=== PATIENT | female | born 1930 | race Caucasian/White ===

== ENCOUNTER 2017-01-16 22:22 | Emergency (ER) | payer MEDICARE, OTHER ==
[~2017-01-16] VITALS: Ht 162.6 cm; Wt 53.1 kg
[~2017-01-16 22:22] MED LIST: AMLO1CAP7 PO; CITA10TA4 PO; METF500T4 PO; METO-269 PO; POTA10TA5 PO; VALS1TAB8 PO
[2017-01-16 22:26] VITALS: BP 198/77
[2017-01-16 23:35] LABS: CALCIUM 8.9 mg/dL (8.5-10.1); CREATININE 1.5 mg/dL (0.6-1.0); GFR 32.9; POTASSIUM 4.3 mmol/L (3.5-5.1)
[2017-01-16 23:41] LABS: ALBUMIN 3.6 g/dL (3.4-5.0); ALBUMIN/GLOBULIN RATIO 1.1 (1.0-1.7); TOTAL BILIRUBIN 0.4 mg/dL (0.2-1.0); TOTAL PROTEIN 6.8 g/dL (6.4-8.2)
[2017-01-16 23:44] LABS: BASO # 0.1 x10^3/uL (0.0-0.2); BASO % 1 % (0-3); EOS % 2 % (0-3); HEMATOCRIT 34.1 % (36.0-47.0); HEMOGLOBIN 11.6 g/dL (12.0-15.5); LYMPH # 1.2 x10^3/uL (1.0-4.8); LYMPH % 15 % (24-48); MEAN CORPUSCULAR HEMOGLOBIN 32 pg (25-35); MEAN CORPUSCULAR HGB CONC 34 g/dL (31-37); MEAN CORPUSCULAR VOLUME 93 fL (79-100); MONO % 9 % (0-9); NEUT % 74 % (31-73); PLATELET COUNT 183 x10^3/uL (140-400); RED BLOOD COUNT 3.68 x10^6/uL (3.50-5.40); RED CELL DISTRIBUTION WIDTH 12.5 % (11.5-14.5); WHITE BLOOD COUNT 8.5 x10^3/uL (4.0-11.0)
--- NOTE | 2017-01-17 00:29 | PHYS DOC ---
Past Medical History Past Medical History: Dementia, Diabetes-Type II, Hypertension Additional Past Medical Histor: ALZHEIMERS Past Surgical History: Alcohol Use: None Drug Use: None Adult General Chief Complaint Chief Complaint: SYNCOPE HPI HPI Patient is a 86 year old female brought to the ED by EMS from home after syncopal episode. Family members here with her contribute to the history. The patient really doesn't know what happened. Patient's daughter lives with her. She said that the patient had been in the kitchen helping to dry dishes, she went over and sat down at the table, then she sounds like she looked at the floor and was a bit confused for a moment and then she fell out of the chair onto the floor. She was unresponsive for possibly 2 minutes. They called 911. She had one episode of vomiting a small amount of clear liquid. She came around pretty quickly, does not sound like she had any kind of postictal state. She was not incontinent. On arrival in the ED, she is alert, talkative, and without complaint. There is no report of any chest pain or other complaint. The patient reportedly had one syncopal episode in the past when they were at the store. She does not frequently have problems with this. On arrival, the patient denies any pain. She denies headache, neck pain, chest or abdominal pain. Review of Systems Review of Systems Constitutional: Denies fever or chills [] HENT: Denies nasal congestion or sore throat [] Respiratory: Denies cough or shortness of breath [] Cardiovascular: Denies chest pain GI: As in history of present illness : Denies dysuria or hematuria [] Musculoskeletal: Denies back pain or joint pain [] Integument: Denies rash or skin lesions [] Neurologic: Denies headache, focal weakness or sensory changes [] Allergies Allergies Allergies Coded Allergies Type Severity Reaction Last Updated Verified No Known Drug Allergies 02/27/14 No Physical Exam Physical Exam Constitutional: Well developed, well nourished, no acute distress, non-toxic appearance. Alert, mentating normally. HENT: Normocephalic, atraumatic, bilateral external ears normal, nose normal. [ ] Eyes: conjunctiva normal, no discharge. [] Neck: Normal range of motion, no tenderness, no stridor. [] Cardiovascular:Heart rate regular rhythm, no murmur [] Lungs & Thorax: Bilateral breath sounds clear to auscultation [] Abdomen: Bowel sounds normal, soft, nondistended, no tenderness, no masses, no pulsatile masses. [] Skin: Warm, dry, no erythema, no rash. [] Extremities: No tenderness, no cyanosis, no clubbing, ROM intact, no edema. [] Neurologic: Alert and oriented X 3, normal motor function, normal sensory function, no focal deficits noted. [] Current Patient Data Vital Signs Vital Signs Date Time Temp Pulse Resp B/P (MAP) Pulse Ox O2 Delivery O2 Flow Rate FiO2 01/16/17 22:26 98.0 63 18 198/77 (117) 99 Room Air 98.0 Lab Values Laboratory Tests Test 01/16/17 23:15 01/16/17 23:35 Sodium Level 137 mmol/L (136-145) Potassium Level 4.3 mmol/L (3.5-5.1) Chloride Level 102 mmol/L (98-107) Carbon Dioxide Level 30 mmol/L (21-32) Anion Gap 5 (6-14) L Blood Urea Nitrogen 32 mg/dL (7-20) H Creatinine 1.5 mg/dL (0.6-1.0) H Estimated GFR (Cockcroft-Gault) 32.9 BUN/Creatinine Ratio 21 (6-20) H Glucose Level 159 mg/dL (70-99) H Calcium Level 8.9 mg/dL (8.5-10.1) Total Bilirubin 0.4 mg/dL (0.2-1.0) Aspartate Amino Transferase (AST) 16 U/L (15-37) Alanine Aminotransferase (ALT) 17 U/L (14-59) Alkaline Phosphatase 116 U/L (46-116) Total Protein 6.8 g/dL (6.4-8.2) Albumin 3.6 g/dL (3.4-5.0) Albumin/Globulin Ratio 1.1 (1.0-1.7) White Blood Count 8.5 x10^3/uL (4.0-11.0) Red Blood Count 3.68 x10^6/uL (3.50-5.40) Hemoglobin 11.6 g/dL (12.0-15.5) L Hematocrit 34.1 % (36.0-47.0) L Mean Corpuscular Volume 93 fL (79-100) Mean Corpuscular Hemoglobin 32 pg (25-35) Mean Corpuscular Hemoglobin Concent 34 g/dL (31-37) Red Cell Distribution Width 12.5 % (11.5-14.5) Platelet Count 183 x10^3/uL (140-400) Neutrophils (%) (Auto) 74 % (31-73) H Lymphocytes (%) (Auto) 15 % (24-48) L Monocytes (%) (Auto) 9 % (0-9) Eosinophils (%) (Auto) 2 % (0-3) Basophils (%) (Auto) 1 % (0-3) Neutrophils # (Auto) 6.3 x10^3uL (1.8-7.7) Lymphocytes # (Auto) 1.2 x10^3/uL (1.0-4.8) Monocytes # (Auto) 0.7 x10^3/uL (0.0-1.1) Eosinophils # (Auto) 0.2 x10^3/uL (0.0-0.7) Basophils # (Auto) 0.1 x10^3/uL (0.0-0.2) Laboratory Tests 01/16/17 23:35 Laboratory Tests 01/16/17 23:15 EKG EKG Twelve-lead EKG read by me. Sinus rhythm. Heart rate 65. There are no acute ST or T wave changes indicative of ischemia or infarction. No STEMI. No rhythm disturbance. 0768 Radiology/Procedures Radiology/Procedures [] Course & Med Decision Making Course & Med Decision Making Pertinent Labs and Imaging studies reviewed. (See chart for details) 86 sure old female who has some dementia, lives with a family member, presents after syncopal episode that occurred while she was sitting down. We will check an EKG and some labs and observe the patient. EKG unremarkable, labs unremarkable. The patient remained alert, mentating normally, chatting with family members, in the ED. I don't know that hospitalization would yield any further results and finding out what caused her syncopal episode. She had a trial of ambulation in the emergency department prior to discharge. She will be staying with a family member who will watch her. Family feels comfortable with discharge. [] Dragon Disclaimer Dragon Disclaimer This electronic medical record was generated, in whole or in part, using a voice recognition dictation system. Departure Departure Impression: Primary Impression: Syncope Disposition: 01 HOME, SELF-CARE Condition: STABLE Referrals: TOMASZ CARRASCO MD (PCP) Patient Instructions: Syncope, [id number] Additional Instructions: Be very careful with position changes and have someone near you when you are standing up and walking for the next day or 2. Drink plenty of fluids. DEBBIE MICHAELS MD Jan 17, 2017 00:29
--- NOTE | 2017-01-17 06:23 | EKG ---
[facility] [address] [place] [address] Test Date: 2017-01-16 Test Time: 22:35:54 Pat Name: ANALILIA ALLEN Department: Room: Gender: F Strap Buckler: : 1930 Requested By: DEBBIE MICHAELS Order Number: [id number] Reading MD: Measurements Intervals [place] Rate: 65 P: 53 [place]: 180 QRS: -17 QRSD: 84 T: 64 QT: 390 QTc: 406 Interpretive Statements SINUS RHYTHM LEFTWARD AXIS NON SPECIFIC T ABNORMALITY RI6.01 Unconfirmed report No previous ECG available for comparison
== END 2017-01-17 00:45 | disposition home or self-care (01) ==
LOC: ER 22:22
DX: R55 Syncope and collapse (principal); E11.9 Type 2 diabetes mellitus without complications; I10 Essential (primary) hypertension; F02.80 Dementia in other diseases classified elsewhere, unspecified severity, without behavioral disturbance, psychotic disturbance, mood disturbance, and anxiety; G30.9 Alzheimer's disease, unspecified
CPT/HCPCS: 36415; 80053; 85027; 93005; 99285-25

== ENCOUNTER 2017-10-17 16:19 | Emergency (ER) | payer MEDICARE, OTHER | END 2017-10-17 17:55 | disposition home or self-care (01) | LOC: ER 16:19 | DX: S70.01XA Contusion of right hip, initial encounter (principal); S79.912A Unspecified injury of left hip, initial encounter; E11.9 Type 2 diabetes mellitus without complications; I10 Essential (primary) hypertension; F02.80 Dementia in other diseases classified elsewhere, unspecified severity, without behavioral disturbance, psychotic disturbance, mood disturbance, and anxiety; W19.XXXA Unspecified fall, initial encounter; Y93.89 Activity, other specified; Y92.89 Other specified places as the place of occurrence of the external cause; Y99.8 Other external cause status | CPT/HCPCS: 70450; 72170; 93005; 99284-25; 99285-25 ==

== ENCOUNTER 2017-10-24 19:25 | Inpatient (IN) | payer MEDICARE, OTHER ==
[2017-10-24 20:17] LABS: BILIRUBIN,URINE NEGATIVE (NEG); CLARITY,URINE CLEAR; COLOR,URINE YELLOW; GLUCOSE,URINE >=1000 mg/dL (NEG); NITRITE,URINE POSITIVE (NEG); PROTEIN,URINE NEGATIVE (NEG-TRACE)
[2017-10-24 20:25] LABS: ADD MAN DIFF? NO
[2017-10-24 20:28] LABS: BASO % 0 % (0-3); EOS % 0 % (0-3); HEMATOCRIT 36.8 % (36.0-47.0); HEMOGLOBIN 12.6 g/dL (12.0-15.5); LYMPH % 12 % (24-48); MEAN CORPUSCULAR HEMOGLOBIN 32 pg (25-35); MEAN CORPUSCULAR HGB CONC 34 g/dL (31-37); MEAN CORPUSCULAR VOLUME 93 fL (79-100); MONO # 0.6 x10^3/uL (0.0-1.1); MONO % 8 % (0-9); NEUT # 6.5 x10^3uL (1.8-7.7); NEUT % 80 % (31-73); PLATELET COUNT 209 x10^3/uL (140-400); RED BLOOD COUNT 3.97 x10^6/uL (3.50-5.40); RED CELL DISTRIBUTION WIDTH 12.4 % (11.5-14.5); WHITE BLOOD COUNT 8.2 x10^3/uL (4.0-11.0)
[2017-10-24 20:39] LABS: ANION GAP 9 (6-14); BLOOD UREA NITROGEN 34 mg/dL (7-20); CALCIUM 9.3 mg/dL (8.5-10.1); CARBON DIOXIDE 26 mmol/L (21-32); CHLORIDE 100 mmol/L (98-107); CREATININE 1.4 mg/dL (0.6-1.0); GFR 35.6; GLUCOSE 437 mg/dL (70-99); SODIUM 135 mmol/L (136-145)
[2017-10-24 20:43] LABS: BACTERIA,URINE MANY /HPF (0-FEW); MAGNESIUM 1.4 mg/dL (1.8-2.4); PHOSPHORUS 3.8 mg/dL (2.6-4.7); SQUAMOUS EPITHELIAL CELL,UR MOD /LPF
[2017-10-24 20:46] LABS: TROPONINI 0.017 ng/mL (0.000-0.055)
[2017-10-24 20:52] LABS: THYROID STIM HORMONE (TSH) 2.895 uIU/mL (0.358-3.74)
[2017-10-24] MEDS: ONDANSETRON PF 4 MG/2 ML VIAL. IV (22:56)
[2017-10-24] MEDS: fentaNYL PF VIAL 100 MCG/2 ML VIAL IV (22:56)
[2017-10-24] MEDS: IV NORMAL SALINE 1000ML BAG 1,000 ML IV (22:56)
[2017-10-25 07:57] LABS: POC GLUCOSE 172 mg/dL (70-99)
[2017-10-25] MEDS: IV NORMAL SALINE 1000ML BAG 1,000 ML IV ×2 (08:45→12:55)
[2017-10-25] MEDS: MAGNESIUM SULFATE 2GM 50 ML IV (10:16)
[2017-10-25] MEDS: CITALOPRAM 10 MG TABLET. PO (10:17)
[2017-10-25] MEDS: hydroCHLOROthiazide 12.5 MG CAPSULE PO (10:17)
[2017-10-25] MEDS: MEMANTINE 10 MG TABLET. PO (10:17)
[2017-10-25] MEDS: LOSARTAN POTASSIUM 50 MG TABLET. PO (10:18)
[2017-10-25] MEDS ORDERED: ceFAZolin 2GM PREMIX 2 GM/50 ML BAG IV (12:00)
[2017-10-25 12:02] LABS: POC GLUCOSE 222 mg/dL (70-99)
[2017-10-25] MEDS ORDERED: WARFARIN 7.5 MG TABLET. PO (16:00)
[2017-10-25] MEDS: IV RINGERS,LACTATED 1000ML 1,000 ML IV (16:10)
[2017-10-25] MEDS ORDERED: ONDANSETRON PF 4 MG/2 ML VIAL. IV ×2 (16:15→21:30)
[2017-10-25] MEDS ORDERED: MORPHINE SULFATE 4 MG/ML DISP.SYRIN. IV ×3 (16:15→21:45)
[2017-10-25] MEDS ORDERED: fentaNYL PF VIAL 100 MCG/2 ML VIAL IV ×3 (16:15→21:30)
[2017-10-25] MEDS ORDERED: PROCHLORPERAZINE 10 MG/2 ML VIAL. IV (16:15)
[2017-10-25] MEDS ORDERED: LIDOCAINE 1% PF 2 ML VIAL. ID (16:15)
[2017-10-25 16:41] LABS: POC GLUCOSE 153 mg/dL (70-99)
[2017-10-25] MEDS ORDERED: PHENYLEPHRINE in 0.9% NACL PF 1 MG/10 ML SYRINGE. IV (18:05)
[2017-10-25] MEDS ORDERED: LIDOCAINE 2% PF Vial for OR 5 ML VIAL. (18:05)
[2017-10-25] MEDS ORDERED: PROPOFOL 20 ML IV (18:05)
[2017-10-25] MEDS ORDERED: fentaNYL PF VIAL 100 MCG/2 ML VIAL (18:06)
[2017-10-25] MEDS: MORPHINE SULFATE 5 MG, KETOROLAC 30 MG, ROPIVacaine 0.5% PF 60 ML, EPINEPHrine 0.5 MG i... INT ART (18:48)
[2017-10-25] MEDS ORDERED: ONDANSETRON PF 4 MG/2 ML VIAL. (18:53)
[2017-10-25] MEDS ORDERED: DEXAMETHASONE SOD PHOS 20 MG/5 ML VIAL. (18:53)
[2017-10-25] MEDS ORDERED: ePHEDrine PF IN SALINE 50 MG/5 ML DISP.SYRIN IV (19:10)
[2017-10-25 20:22] LABS: POC GLUCOSE 192 mg/dL (70-99)
[2017-10-25] MEDS: INSULIN ASPART 100 UNIT/ML 10ML VIAL. SQ ×2 (20:40→21:00)
[2017-10-25] MEDS ORDERED: INSULIN LISPRO 100 UNIT/ML 3ML VIAL. SQ (20:45)
[2017-10-25 21:09] LABS: POC GLUCOSE 226 mg/dL (70-99)
[2017-10-25] MEDS ORDERED: oxyCODONE IR 5 MG TABLET PO (21:30)
[2017-10-25] MEDS ORDERED: HYDROcodone/APAP 7.5/325MG 1 TAB TABLET PO (21:30)
[2017-10-25] MEDS ORDERED: POLYETHYLENE GLYCOL 3350 17 GM PACKET. PO (21:30)
[2017-10-25] MEDS ORDERED: DEXTROSE 50% 25 GM / 50ML DISP.SYRIN. IV (21:30)
[2017-10-25] MEDS ORDERED: ceFAZolin SODIUM 1 GM in IV DEXTROSE 5% 50 ML IV (21:45)
[2017-10-25 22:16] LABS: MRSA BY PCR Negative (Negative)
[2017-10-25 22:42] LABS: INR 1.1 (0.8-1.1); PROTHROMBIN TIME PATIENT 13.5 SEC (11.7-14.0)
[2017-10-26] MEDS: ceFAZolin SODIUM IV Push 1 GM VIAL. IVP ×3 (00:12→11:34)
[2017-10-26] MEDS ORDERED: ANTI-COAG MONITOR BY PHARMACY. MC (00:15)
[2017-10-26] MEDS: WARFARIN 5 MG TABLET. PO (00:26)
[2017-10-26 05:31] LABS: HEMATOCRIT 28.9 % (36.0-47.0); HEMOGLOBIN 9.9 g/dL (12.0-15.5); MEAN CORPUSCULAR HGB CONC 34 g/dL (31-37)
[2017-10-26 05:35] LABS: INR 1.1 (0.8-1.1)
[2017-10-26 05:43] LABS: ANION GAP 7 (6-14); BLOOD UREA NITROGEN 34 mg/dL (7-20); CALCIUM 8.4 mg/dL (8.5-10.1); CARBON DIOXIDE 26 mmol/L (21-32); CHLORIDE 107 mmol/L (98-107); CREATININE 1.3 mg/dL (0.6-1.0); GFR 38.7; GLUCOSE 233 mg/dL (70-99); SODIUM 140 mmol/L (136-145)
[2017-10-26] MEDS ORDERED: MAGNESIUM HYDROXIDE 2,400 MG/30 ML ORAL.SUSP. PO (06:00)
[2017-10-26 08:19] LABS: POC GLUCOSE 194 mg/dL (70-99)
[2017-10-26] MEDS: CITALOPRAM 10 MG TABLET. PO (08:33)
[2017-10-26] MEDS: SENNOSIDES/DOCUSATE 8.6/50MG TABLET. PO (08:33)
[2017-10-26] MEDS: MEMANTINE 10 MG TABLET. PO (08:33)
[2017-10-26] MEDS: hydroCHLOROthiazide 12.5 MG CAPSULE PO (08:33)
[2017-10-26] MEDS: LOSARTAN POTASSIUM 50 MG TABLET. PO (08:34)
[2017-10-26 12:21] LABS: POC GLUCOSE 225 mg/dL (70-99)
[2017-10-26] MEDS ORDERED: BISACODYL 10 MG SUPP.RECT. PR (16:00)
[2017-10-26 17:40] LABS: POC GLUCOSE 194 mg/dL (70-99)
[2017-10-26] MEDS: WARFARIN 3 MG TABLET. PO (17:48)
[2017-10-26 21:18] LABS: POC GLUCOSE 248 mg/dL (70-99)
[2017-10-27 09:27] LABS: PROTHROMBIN TIME PATIENT 21.6 SEC (11.7-14.0)
[2017-10-27] MEDS: HYDROcodone/APAP 7.5/325MG 1 TAB TABLET PO (09:28)
[2017-10-27 09:38] LABS: POC GLUCOSE 178 mg/dL (70-99)
[2017-10-27] MEDS: LOSARTAN POTASSIUM 50 MG TABLET. PO (09:49)
[2017-10-27] MEDS: SENNOSIDES/DOCUSATE 8.6/50MG TABLET. PO (09:50)
[2017-10-27] MEDS: MEMANTINE 10 MG TABLET. PO (09:50)
[2017-10-27] MEDS: hydroCHLOROthiazide 12.5 MG CAPSULE PO (09:50)
[2017-10-27] MEDS: CITALOPRAM 10 MG TABLET. PO (09:50)
[2017-10-27 11:00] LABS: POC GLUCOSE 247 mg/dL (70-99)
[2017-10-27 16:29] LABS: POC GLUCOSE 242 mg/dL (70-99)
[2017-10-27] MEDS: WARFARIN 1 MG TABLET. PO (17:37)
[2017-10-27 22:00] LABS: POC GLUCOSE 346 mg/dL (70-99)
[2017-10-27 22:00] LABS: POC GLUCOSE 346 mg/dL (70-99)
[2017-10-27] MEDS: INSULIN GLARGINE 300 UNITS/3 ML INSULN.PEN. SQ (22:25)
[2017-10-28 01:34] LABS: POC GLUCOSE 184 mg/dL (70-99)
[2017-10-28 05:03] LABS: INR 1.9 (0.8-1.1); PROTHROMBIN TIME PATIENT 21.5 SEC (11.7-14.0)
[2017-10-28 07:51] LABS: POC GLUCOSE 161 mg/dL (70-99)
[2017-10-28] MEDS: CITALOPRAM 10 MG TABLET. PO (09:03)
[2017-10-28] MEDS: LOSARTAN POTASSIUM 50 MG TABLET. PO (09:03)
[2017-10-28] MEDS: MEMANTINE 10 MG TABLET. PO (09:03)
[2017-10-28] MEDS: hydroCHLOROthiazide 12.5 MG CAPSULE PO (09:03)
[2017-10-28] MEDS: SENNOSIDES/DOCUSATE 8.6/50MG TABLET. PO (09:03)
[2017-10-28 11:30] LABS: POC GLUCOSE 216 mg/dL (70-99)
[2017-10-28] MEDS: WARFARIN 3 MG TABLET. PO (15:59)
[2017-10-28 17:15] LABS: POC GLUCOSE 293 mg/dL (70-99)
[2017-10-28] MEDS: metFORMIN 500 MG TABLET PO (17:38)
[2017-10-28] MEDS: INSULIN GLARGINE 300 UNITS/3 ML INSULN.PEN. SQ ×2 (17:43→21:34)
[2017-10-28 20:53] LABS: POC GLUCOSE 257 mg/dL (70-99)
[2017-10-29 05:38] LABS: INR 2.1 (0.8-1.1); PROTHROMBIN TIME PATIENT 22.7 SEC (11.7-14.0)
[2017-10-29 08:02] LABS: POC GLUCOSE 142 mg/dL (70-99)
[2017-10-29] MEDS: SENNOSIDES/DOCUSATE 8.6/50MG TABLET. PO (08:29)
[2017-10-29] MEDS: hydroCHLOROthiazide 12.5 MG CAPSULE PO (08:29)
[2017-10-29] MEDS: CITALOPRAM 10 MG TABLET. PO (08:29)
[2017-10-29] MEDS: LOSARTAN POTASSIUM 50 MG TABLET. PO (08:29)
[2017-10-29] MEDS: metFORMIN 500 MG TABLET PO (08:29)
[2017-10-29] MEDS: MEMANTINE 10 MG TABLET. PO (08:30)
[2017-10-29 11:36] LABS: POC GLUCOSE 218 mg/dL (70-99)
[2017-10-29 15:11] LABS: HEMOGLOBIN A1C 7.3 % (4.8-5.6)
[2017-10-29] MEDS: WARFARIN 2 MG TABLET. PO (15:37)
== END 2017-10-29 15:47 | DRG 470 ==
LOC: ER 19:25 → 4 NORTH 21:00
PROC: 0SRR0J9 Replacement of Right Hip Joint, Femoral Surface with Synthetic Substitute, Cemented, Open Approach (ICD-10-PCS; principal; 2017-10-25 17:00)
DX: S72.011A Unspecified intracapsular fracture of right femur, initial encounter for closed fracture (principal); E11.22 Type 2 diabetes mellitus with diabetic chronic kidney disease; G30.9 Alzheimer's disease, unspecified; F02.80 Dementia in other diseases classified elsewhere, unspecified severity, without behavioral disturbance, psychotic disturbance, mood disturbance, and anxiety; N18.3 Chronic kidney disease, stage 3 (moderate); E03.9 Hypothyroidism, unspecified; E83.42 Hypomagnesemia; I12.9 Hypertensive chronic kidney disease with stage 1 through stage 4 chronic kidney disease, or unspecified chronic kidney disease; M16.11 Unilateral primary osteoarthritis, right hip; W18.39XA Other fall on same level, initial encounter; Y93.89 Activity, other specified; Y92.89 Other specified places as the place of occurrence of the external cause; Y99.8 Other external cause status; Z87.891 Personal history of nicotine dependence
CPT/HCPCS: 36415; 71045; 73502; 73700; 80048; 81001; 82962; 83036; 83735; 84100; 84443; 84484; 85014; 85018; 85025; 85610; 87641; 93005; 96361; 96374; 96375; 97110-GO; 97110-GP; 97116-GP; 97162-GP; 97166-GO; 97530-GO; 97530-GP; 97535-GO; 99285; 99285-25; A7015; C1713; J0171; J0690; J1100; J1815; J1885; J2270; J2370; J2405; J2704; J2795; J3010; J3475; J7030; J7120

== ENCOUNTER 2019-01-30 09:52 | Inpatient (IN) | payer MEDICARE, OTHER ==
[~2019-01-30] VITALS: Ht 160 cm; Wt 51.3 kg
[~2019-01-30 09:52] MED LIST changes: +AMLO1CAP42 PO; -AMLO1CAP7 PO; +HYDR-2761 PO; +HYDR-2765 PO; +IBUP-1227 PO; +METF500T16 PO; -METF500T4 PO; +POTA10TA12 PO; -POTA10TA5 PO; +WARF3TAB50 PO
--- NOTE | 2019-01-30 10:14 | PHYS DOC ---
Past Medical History Past Medical History: Dementia, Diabetes-Type II, Hypertension, Other Additional Past Medical Histor: ALZHEIMERS Past Surgical History: Additional Past Surgical Histo: LEFT HIP Alcohol Use: None Drug Use: None Adult General Chief Complaint Chief Complaint: SYNCOPE HPI HPI Patient is a pleasant 89-year-old female with a past history of dementia. According to EMS report, the patient was being bathed by her home health aides, when she had a syncopal episode in the bathtub, for approximately 30 seconds. According to EMS, family who was present on scene reported that after the patient awakened, she is back at her current mental state. The patient currently is awake, pleasant, and denies any complaints. She does have a prior history of atrial fibrillation, but according to prior notes which have been reviewed, she does not take any anticoagulation, as her risk of falls and harm from the medication was deemed to outweigh the benefit. The patient currently is awake, alert to person, disoriented to place and time, but able to follow commands, and engage and pleasant conversation. There is some confabulation present. There are no alleviating or exacerbating factors to her symptoms. Review of Systems Review of Systems Constitutional: Denies fever or chills [] Eyes: Denies change in visual acuity, redness, or eye pain [] HENT: Denies nasal congestion or sore throat [] Respiratory: Denies cough or shortness of breath [] Cardiovascular: The patient denies any shortness of breath, chest pain, pa lpitations, or orthopnea[] GI: Denies abdominal pain, nausea, vomiting, bloody stools or diarrhea [] : Denies dysuria or hematuria [] Musculoskeletal: Denies back pain or joint pain [] Integument: Denies rash or skin lesions [] Neurologic: Denies headache, focal weakness or sensory changes [] Endocrine: Denies polyuria or polydipsia [] All other systems were reviewed and found to be within normal limits, except as documented in this note. Current Medications Current Medications Current Medications Medications (Trade) Dose Ordered Sig/Ji Start Time Stop Time Status Last Admin Dose Admin Ceftriaxone Sodium (Rocephin) 1 gm 1X ONCE 01/30/19 13:30 01/30/19 13:31 DC 01/30/19 13:01 1 GM Magnesium Sulfate 50 ml @ 25 mls/hr 1X ONCE 01/30/19 13:30 01/30/19 15:29 01/30/19 13:01 25 MLS/HR Sodium Chloride 1,000 ml @ 100 mls/hr Q10H 01/30/19 10:30 01/30/19 20:29 01/30/19 11:07 100 MLS/HR Allergies Allergies Allergies Coded Allergies Type Severity Reaction Last Updated Verified No Known Drug Allergies 10/25/17 No Physical Exam Physical Exam PHYSICAL EXAM: CONSTITUTIONAL: Well developed, well nourished HEAD: normocephalic, atraumatic EENT: PERRL, EOMI. Conjunctivae normal color, sclerae non-icteric; moist mucous membranes. NECK: Supple, non-tender; no meningismus. LUNGS: Lungs CTA, breathing even and unlabored. Normal air movement. HEART: Regular rate and rhythm, no murmur CHEST: No deformity; non-tender ABDOMEN: The abdomen is soft, and non-tender, no masses or bruits. EXTREM: Normal ROM; no deformity, no calf tenderness. Normal pulses palpable in all extremities. There is no pedal edema. SKIN: No rash; no diaphoresis NEURO: Alert; normal speech, impaired cognition consistent with dementia,; CN's grossly intact; strength grossly intact without focal deficit. BACK: No CVA TTP. Current Patient Data Vital Signs Vital Signs Date Time Temp Pulse Resp B/P (MAP) Pulse Ox O2 Delivery O2 Flow Rate FiO2 01/30/19 12:56 58 16 165/74 (104) Room Air 01/30/19 09:54 97.3 98 97.3 Lab Values Laboratory Tests Test 01/30/19 10:57 01/30/19 12:17 White Blood Count 7.9 x10^3/uL (4.0-11.0) Red Blood Count 3.94 x10^6/uL (3.50-5.40) Hemoglobin 12.0 g/dL (12.0-15.5) Hematocrit 35.6 % (36.0-47.0) L Mean Corpuscular Volume 90 fL (79-100) Mean Corpuscular Hemoglobin 31 pg (25-35) Mean Corpuscular Hemoglobin Concent 34 g/dL (31-37) Red Cell Distribution Width 13.7 % (11.5-14.5) Platelet Count 262 x10^3/uL (140-400) Neutrophils (%) (Auto) 73 % (31-73) Lymphocytes (%) (Auto) 17 % (24-48) L Monocytes (%) (Auto) 7 % (0-9) Eosinophils (%) (Auto) 2 % (0-3) Basophils (%) (Auto) 1 % (0-3) Neutrophils # (Auto) 5.8 x10^3/uL (1.8-7.7) Lymphocytes # (Auto) 1.3 x10^3/uL (1.0-4.8) Monocytes # (Auto) 0.6 x10^3/uL (0.0-1.1) Eosinophils # (Auto) 0.2 x10^3/uL (0.0-0.7) Basophils # (Auto) 0.1 x10^3/uL (0.0-0.2) Sodium Level 140 mmol/L (136-145) Potassium Level 4.2 mmol/L (3.5-5.1) Chloride Level 103 mmol/L (98-107) Carbon Dioxide Level 30 mmol/L (21-32) Anion Gap 7 (6-14) Blood Urea Nitrogen 21 mg/dL (7-20) H Creatinine 1.0 mg/dL (0.6-1.0) Estimated GFR (Cockcroft-Gault) 52.2 BUN/Creatinine Ratio 21 (6-20) H Glucose Level 166 mg/dL (70-99) H Calcium Level 9.5 mg/dL (8.5-10.1) Magnesium Level 1.2 mg/dL (1.8-2.4) L Total Bilirubin 0.7 mg/dL (0.2-1.0) Aspartate Amino Transferase (AST) 18 U/L (15-37) Alanine Aminotransferase (ALT) 11 U/L (14-59) L Alkaline Phosphatase 129 U/L (46-116) H Troponin I Quantitative < 0.017 ng/mL (0.000-0.055) UI-Tgk-X-Type Natriuretic Peptide 377 pg/mL (0-449) Total Protein 6.4 g/dL (6.4-8.2) Albumin 3.5 g/dL (3.4-5.0) Albumin/Globulin Ratio 1.2 (1.0-1.7) Urine Collection Type Unknown Urine Color Yellow Urine Clarity Clear Urine pH 5.0 Urine Specific [place] 1.020 Urine Protein Negative mg/dL (NEG-TRACE) Urine Glucose (UA) Negative mg/dL (NEG) Urine Ketones (Stick) Negative mg/dL (NEG) Urine Blood Small (NEG) Urine Nitrite Positive (NEG) Urine Bilirubin Negative (NEG) Urine Urobilinogen Dipstick 0.2 mg/dL (0.2 mg/dL) Urine Leukocyte Esterase Large (NEG) Urine RBC 0 /HPF (0-2) Urine WBC >40 /HPF (0-4) Urine Squamous Epithelial Cells Mod /LPF Urine Bacteria Many /HPF (0-FEW) Laboratory Tests 01/30/19 10:57 Laboratory Tests 01/30/19 10:57 EKG EKG [Normal sinus rhythm a rate of 62 beats for minute, left axis deviation, normal intervals, there are no acute ischemic ST/T changes.] Radiology/Procedures Radiology/Procedures [PROCEDURE: PORTABLE CHEST 1V Indication:Syncope. TECHNIQUE:Portable AP chest X-ray COMPARISON: 12/22/2018 FINDINGS: Heart is normal in size. Lungs are clear. No pneumothorax or effusion. Visualized bony thorax is within normal limits. Chronic left proximal humeral fracture. IMPRESSION: No acute pulmonary process. ] Course & Med Decision Making Course & Med Decision Making Pertinent Labs and Imaging studies reviewed. (See chart for details) []The patient's condition remained stable. I had an extensive discussion with the patient and her daughter, the patient's daughter would like her hospitalized for cardiac monitoring, even after discussion with the patient's PCP in depth, and likely will not make a change in her management. However the patient's daughter was comfortable with this disposition. The patient be admitted to observation. The patient's PCP explicitly did not want any telemetry at this time. Dragon Disclaimer Dragon Disclaimer This electronic medical record was generated, in whole or in part, using a voice recognition dictation system. Departure Departure Impression: Primary Impression: Syncope Disposition: 09 ADMITTED INPATIENT Admitting Physician: Schuyler Schmidt Condition: STABLE Referrals: SCHUYLER SCHMIDT MD (PCP) SCHUYLER CARL MD Jan 30, 2019 10:14
[2019-01-30] MEDS ORDERED: IV NORMAL SALINE 1000ML BAG 1,000 ML IV SCH (10:30)
[2019-01-30 11:06] LABS: BASO # 0.1 x10^3/uL (0.0-0.2); BASO % 1 % (0-3); EOS # 0.2 x10^3/uL (0.0-0.7); EOS % 2 % (0-3); HEMATOCRIT 35.6 % (36.0-47.0); LYMPH # 1.3 x10^3/uL (1.0-4.8); LYMPH % 17 % (24-48); MEAN CORPUSCULAR HEMOGLOBIN 31 pg (25-35); MEAN CORPUSCULAR HGB CONC 34 g/dL (31-37); MEAN CORPUSCULAR VOLUME 90 fL (79-100); MONO # 0.6 x10^3/uL (0.0-1.1); MONO % 7 % (0-9); NEUT # 5.8 x10^3/uL (1.8-7.7); NEUT % 73 % (31-73); PLATELET COUNT 262 x10^3/uL (140-400); RED BLOOD COUNT 3.94 x10^6/uL (3.50-5.40); RED CELL DISTRIBUTION WIDTH 13.7 % (11.5-14.5); WHITE BLOOD COUNT 7.9 x10^3/uL (4.0-11.0)
--- NOTE | 2019-01-30 11:06 | RAD ---
Indication:Syncope. TECHNIQUE:Portable AP chest X-ray COMPARISON: 12/22/2018 FINDINGS: Heart is normal in size. Lungs are clear. No pneumothorax or effusion. Visualized bony thorax is within normal limits. Chronic left proximal humeral fracture. IMPRESSION: No acute pulmonary process. Electronically signed by: Devaughn Gloria DO (01/30/2019 11:03 AM) [facility]
[2019-01-30 11:23] LABS: CALCIUM 9.5 mg/dL (8.5-10.1); GFR 52.2; POTASSIUM 4.2 mmol/L (3.5-5.1)
[2019-01-30 11:28] LABS: ALBUMIN 3.5 g/dL (3.4-5.0); ALBUMIN/GLOBULIN RATIO 1.2 (1.0-1.7); MAGNESIUM 1.2 mg/dL (1.8-2.4); TOTAL BILIRUBIN 0.7 mg/dL (0.2-1.0); TOTAL PROTEIN 6.4 g/dL (6.4-8.2)
[2019-01-30 12:32] LABS: BILIRUBIN,URINE NEGATIVE (NEG); CLARITY,URINE CLEAR; COLOR,URINE YELLOW; NITRITE,URINE POSITIVE (NEG); PROTEIN,URINE NEGATIVE (NEG-TRACE); UROBILINOGEN,URINE 0.2 mg/dL (0.2 mg/dL)
[2019-01-30 12:44] LABS: SQUAMOUS EPITHELIAL CELL,UR MOD /LPF
[2019-01-30 12:45] LABS: RBC,URINE 0 /HPF (0-2)
[2019-01-30 12:46] LABS: BACTERIA,URINE MANY /HPF (0-FEW); WBC,URINE >40 /HPF (0-4)
[2019-01-30] MEDS ORDERED: MAGNESIUM SULFATE 2GM 50 ML IV ONE (13:30)
[2019-01-30] MEDS ORDERED: cefTRIAXone IV Push 1 GM VIAL. IVP ONE (13:30)
--- NOTE | 2019-01-30 14:30 | NUR ---
pt admitted to room 580 accompanied by daughter Maylin. oriented to room and call light. bed alarm in place
--- NOTE | 2019-01-30 15:07 | EKG ---
[facility] [address] [place] [address] Test Date: 2019-01-30 Test Time: 10:08:29 Pat Name: ANALILIA ALLEN Department: Room: 580 1 Gender: F Section Chief: : 1930 Requested By: TOMASZ CARL Order Number: [id number] Reading MD: Marlo Sanchez MD Measurements Intervals [place] Rate: 62 P: 57 NM: 170 QRS: -24 QRSD: 88 T: 50 QT: 402 QTc: 410 Interpretive Statements SINUS RHYTHM Electronically Signed On 02-01-2019 15:39:06 CDT by Marlo Sanchez MD
[2019-01-30 15:50] VITALS: BP 169/61
[2019-01-30 19:00] VITALS: BP 142/69
[2019-01-30 23:00] VITALS: BP 159/77
[2019-01-31 03:00] VITALS: BP 150/72
[2019-01-31 07:00] VITALS: BP 130/69
--- NOTE | 2019-01-31 09:10 | PDOC ---
Provider Note Provider Note [id number] TOMASZ CARRASCO MD Jan 31, 2019 09:10
--- NOTE | 2019-01-31 09:26 | HP ---
ADMIT DATE: CHIEF COMPLAINT: Presyncopal episode. HISTORY OF PRESENT ILLNESS: An 89-year-old white female who came into the ER with her daughter who provided the history that she may have had a fainting episode or at least a near fall. The patient has dementia and is not a good historian and is sleeping at this time. ER evaluation was unremarkable and the patient's daughter was uncomfortable taking her home and so she was admitted overnight. There have been no further problems. PAST MEDICAL HISTORY: Well-documented Alzheimer's with mild diet-controlled diabetes. MEDICATION: Her only medication is citalopram. ALLERGIES: No allergies to any drugs. She has had recent fall and injury to her shoulder. Otherwise, unremarkable. SOCIAL HISTORY: Lives with daughter. Nonsmoker, nondrinker, not physically active. FAMILY HISTORY: Unremarkable. REVIEW OF SYSTEMS: No other problems. OBJECTIVE: ENT: All within normal limits. NECK: No masses, nodes or bruits. LUNGS: Clear, no tachypnea. CARDIOVASCULAR: Regular rate. No irregular beat or murmur. ABDOMEN: Soft, benign and nontender. BACK: No CVA tenderness. EXTREMITIES: No joint or skin lesions. Nail beds good. Pulses unremarkable. NEUROLOGIC: Physiologic and nonfocal. She is not oriented to time, place or situation, but responsive to questions and has poor hearing and is in a good mood, when she is not sleeping. LABORATORY STUDIES: Showed evidence of probable urinary tract infection. Otherwise, unremarkable. ASSESSMENT: 1. Near syncopal episode, etiology unclear, but no sign of any cardiac arrhythmia at this time or new stroke. 2. Likely urinary tract infection. 3. Moderate dementia and mild anxiety disorder. PLAN: Urine culture and we will start Bactrim-DS in advance of results. Daughter may be wishing placement, but it is not available at this time to discuss. A psychiatric social worker consult is on board. TOMASZ CARRASCO MD DR: DELVIN/cr JOB#: [id number] / [id number]
[2019-01-31] MEDS: CITALOPRAM 10 MG TABLET. PO SCH (09:29)
[2019-01-31 11:00] VITALS: BP 166/64
[2019-01-31] MEDS: SMZ/TMP 800/160MG TABLET. PO SCH ×2 (13:35→21:12)
[2019-01-31 15:00] VITALS: BP 140/74
[2019-01-31 19:40] VITALS: BP 142/59
[2019-01-31 23:40] VITALS: BP 155/66
[2019-02-01 03:40] VITALS: BP 137/67
[2019-02-01 07:00] VITALS: BP 139/76
--- NOTE | 2019-02-01 08:13 | PDOC ---
Provider Note Provider Note [id number] TOMASZ CARRASCO MD Feb 01, 2019 08:12
[2019-02-01] MEDS: SMZ/TMP 800/160MG TABLET. PO SCH (08:33)
[2019-02-01] MEDS: CITALOPRAM 10 MG TABLET. PO SCH (08:33)
--- NOTE | 2019-02-01 08:33 | DS ---
DATE OF DISCHARGE: 02/01/2019 HOSPITAL SUMMARY: An 89-year-old white female with a history of dementia, came in with mild weakness and fatigue, without any specific findings. Chemistry profile, CBC and cardiac enzymes were unremarkable. Urine showed evidence of infection. Urine culture is pending at this time. Chest x-ray was clear. She was given oral Bactrim DS prior to dismissal; and her vitals are stable; no sign of any arrhythmias or fever; and her mental status is normal for her. She is able to be transferred to outpatient care at this point. FINAL DIAGNOSES: 1. Urinary tract infection. 2. Chronic dementia, moderate. OPERATIONS, PROCEDURES, COMPLICATIONS, CONSULTATIONS: None. DISPOSITION: Discharged home with home hospice. She remains a DNR patient. DISCHARGE MEDICATIONS: Bactrim DS twice a day for 3 more days. Citalopram 10 mg is the only other medication that she takes. ACTIVITY AND DIET: As tolerated. PROGNOSIS: Guarded. TOMASZ CARRASCO MD DR: DELVIN/nts JOB#: [id number] / [id number]
--- NOTE | 2019-02-01 08:44 | NUR ---
SW following pt for dc planning. Pt lives at home with family is discharging today with self care.
[2019-02-01 11:00] VITALS: BP 162/60
--- NOTE | 2019-02-01 13:15 | NUR ---
pt discharged home with HH and Palliative care. pt lives w/ daughter. meds and follow up reviewed. script for Bactrim called to [facility], per daughter's request. IV removed cath intact. pt stable upon dc.
--- NOTE | 2019-02-01 13:37 | NUR ---
STACY faxed resumption orders to [facility]. Discussed with RN.
== END 2019-02-01 13:17 | disposition home health service (06) | DRG 690 ==
LOC: ER 09:52 → 5 SOUTH 14:20 → OBSVTOIN 01-31 13:26
PROVIDERS: ADMIT Family Medicine; ATTEND Family Medicine
DX: N39.0 Urinary tract infection, site not specified (principal); E11.9 Type 2 diabetes mellitus without complications; F02.80 Dementia in other diseases classified elsewhere, unspecified severity, without behavioral disturbance, psychotic disturbance, mood disturbance, and anxiety; F41.9 Anxiety disorder, unspecified; G30.9 Alzheimer's disease, unspecified; I10 Essential (primary) hypertension; Z66 Do not resuscitate; Z79.899 Other long term (current) drug therapy
CPT/HCPCS: 36415; 71045; 80053; 81001; 83735; 83880; 84484; 85025; 87086; 93005; 96374; G0378; G0379; J0696; J3475; J7030; 97535; 99285-25